=== PATIENT | female | born 1980 | race Caucasian/White ===

== ENCOUNTER 2024-05-17 13:20 | Emergency (ER) | payer OTHER ==
[~2024-05-17] VITALS: Ht 165.1 cm; Wt 77.1 kg
[2024-05-17 14:41] VITALS: TEMP 98.6
[2024-05-17 16:02] LABS: BASOPHILS % (AUTO) 0.2 % (0.0-2.0); EOSINOPHILS % (AUTO) 0.2 % (0.0-6.0); HEMATOCRIT 36 % (33-45); HEMOGLOBIN 11.8 g/dL (11.5-14.8); LYMPHOCYTES # (AUTO) 1.8 K/uL (0.8-4.8); LYMPHOCYTES % (AUTO) 10.5 % (20.0-44.0); MEAN CORPUSCULAR HEMOGLOBIN 29 PG (26.0-33.0); MEAN CORPUSCULAR HGB CONC 33 g/dl (31.0-36.0); MEAN CORPUSCULAR VOLUME 87 fL (82-100); MONOCYTES # (AUTO) 0.9 K/uL (0.1-1.30); MONOCYTES % (AUTO) 5.4 % (2.0-12.0); NEUTROPHILS # (AUTO) 14.4 K/uL (1.8-8.9); NEUTROPHILS % (AUTO) 83.7 % (43.0-81.0); PLATELET COUNT (AUTO) 288 K/uL (150-450); RED BLOOD CELL COUNT(AUTO) 4.14 MIL/uL (4.0-5.2); RED CELL DISTRIBUTION WIDTH 12.5 % (11.5-15.0); WHITE BLOOD COUNT (AUTO) 17.2 K/uL (4.3-11.0)
[2024-05-17 16:10] LABS: CALCIUM, SERUM 9.9 mg/dL (8.5-10.1); CREATININE 0.8 mg/dL (0.6-1.3); POTASSIUM 3.3 mmol/L (3.5-5.1)
[2024-05-17] MEDS ORDERED: KETOROLAC TROMETHAMINE 15 MG/ML VIAL ONE (16:14)
[2024-05-17] MEDS: KETOROLAC TROMETHAMINE 15 MG/ML VIAL IV ONE (16:17)
[2024-05-17] MEDS ORDERED: CLINDAMYCIN 600 MG in IV D5W 100 ML IV ONE (17:00)
[2024-05-17] MEDS ORDERED: IOHEXOL-300 100 ML VIAL IV ONE (17:04)
[2024-05-17] MEDS: IV NS 0.9% 1,000 ML BAG IV ONE (17:25)
[2024-05-17] MEDS: CLINDAMYCIN 600 MG in IV NS 0.9% 46 ML IV ONE (17:30)
[2024-05-17] MEDS ORDERED: LIDOCAINE VISCOUS 2% UD 15 ML UDC ONE (18:51)
[2024-05-17] MEDS ORDERED: dexaMETHasone SOD PHOSPHATE 1 ML ONE (18:51)
[2024-05-17] MEDS ORDERED: LIDOCAINE 1%-EPI 1:100,000 20 ML VIAL ONE (18:51)
[2024-05-17] MEDS: dexaMETHasone SOD PHOSPHATE 10 MG/ML VIAL IV ONE (18:55)
[2024-05-17] MEDS: LIDOCAINE VISCOUS 2% UD 15 ML UDC MM ONE (19:00)
[2024-05-17] MEDS: LIDOCAINE 1%-EPI 1:100,000 50 ML VIAL IJ ONE (19:40)
[2024-05-17] MEDS ORDERED: CLIN300C12 PO (19:45)
[2024-05-17] MEDS ORDERED: ACET-2605 PO (19:45)
[2024-05-17] MEDS ORDERED: IBUP-1957 PO (19:45)
[2024-05-17 19:47] LABS: BILIRUBIN,DIRECT 0.3 mg/dL (0.0-0.2); BILIRUBIN,TOTAL 0.9 mg/dL (0.2-1.0)
[2024-05-17 19:50] LABS: LACTIC ACID REFLEX 0.9 mmol/L (0.4-1.9)
[2024-05-17 21:13] VITALS: BP 135/85; O2SAT 99
== END 2024-05-17 20:09 | disposition home or self-care (01) ==
LOC: ER 13:40
DX: J36 Peritonsillar abscess (principal); R10.2 Pelvic and perineal pain; R50.9 Fever, unspecified; R07.0 Pain in throat
CPT/HCPCS: 36415; 42999; 70491; 80048; 82247; 82248; 83605; 84702; 85025; 87040; 87070; 87880; 96365; 96375; 99285; J1100; J1885; J3490; J7030; Q9967; 86403-TC; J7060

== ENCOUNTER 2025-09-14 14:56 | Emergency (ER) | payer OTHER ==
[~2025-09-14] VITALS: Ht 160 cm; Wt 75.7 kg
[~2025-09-14 14:56] MED LIST: ACET-2605 PO; CLIN300C12 PO; IBUP-1957 PO
[2025-09-14 16:24] LABS: PLATELET COUNT (AUTO) 337 K/uL (150-450); RED BLOOD CELL COUNT(AUTO) 4.34 MIL/uL (4.0-5.2); RED CELL DISTRIBUTION WIDTH 13.4 % (11.5-15.0); WHITE BLOOD COUNT (AUTO) 7.7 K/uL (4.3-11.0)
[2025-09-14 16:33] LABS: CALCIUM, SERUM 9.3 mg/dL (8.5-10.1); CREATININE 0.6 mg/dL (0.6-1.3); SODIUM SERUM 139.0 mmol/L (136-145); UREA NITROGEN, BLOOD 14.0 mg/dL (7-18)
[2025-09-14 16:49] LABS: INR 1.04 (0.91-1.10)
[2025-09-14 17:57] VITALS: BP 142/84; TEMP 98.8; O2SAT 100
== END 2025-09-14 17:58 | disposition home or self-care (01) ==
LOC: ER 15:13
DX: R51.9 Headache, unspecified (principal); R00.2 Palpitations; Z86.2 Personal history of diseases of the blood and blood-forming organs and certain disorders involving the immune mechanism
CPT/HCPCS: 36415; 70450-TC; 71045-TC; 80048-TC; 85025-TC; 85730-TC